=== PATIENT | female | born 1980 | race Caucasian/White ===

== ENCOUNTER 2020-09-25 08:26 | Emergency (ER) | payer OTHER, SELFPAY ==
[~2020-09-25] VITALS: Ht 154.9 cm; Wt 60.8 kg
[2020-09-25 08:30] VITALS: Ht 154.9 cm; Wt 60.8 kg
[2020-09-25 09:20] VITALS: BP 106/77
== END 2020-09-25 09:26 | disposition home or self-care (01) ==
LOC: ED 08:26
DX: U07.1 COVID-19 (principal)
CPT/HCPCS: J7030; U0003